=== PATIENT | male | born 1995 | race Caucasian/White ===

== ENCOUNTER 2020-08-27 15:49 | Emergency (ER) | payer OTHER ==
[~2020-08-27] VITALS: Ht 170.2 cm; Wt 86.2 kg
[2020-08-27] MEDS ORDERED: PROAIR HFA8.5 GM IH (16:00)
[2020-08-27] MEDS ORDERED: IBU800 MG PO (20:16)
[2020-08-27] MEDS ORDERED: NORFLEX100MG PO (20:16)
== END 2020-08-27 20:30 | disposition home or self-care (01) ==
LOC: ER 15:49
DX: S13.4XXA Sprain of ligaments of cervical spine, initial encounter (principal); S30.0XXA Contusion of lower back and pelvis, initial encounter; V49.9XXA Car occupant (driver) (passenger) injured in unspecified traffic accident, initial encounter; Y93.89 Activity, other specified; Y92.488 Other paved roadways as the place of occurrence of the external cause; Y99.8 Other external cause status